=== PATIENT | female | born 1990 | race Caucasian/White ===

== ENCOUNTER 2016-07-11 06:37 | Inpatient (IN) ==
[2016-07-11] MEDS ORDERED: Oxytocin 20 units/ LR 1000 mL 20 UNIT/1,000 ML BAG IVC ONE ×2 (06:42→09:31)
[2016-07-11] MEDS ORDERED: Ketorolac 30 MG/ML VIAL IVP ONE (06:58)
--- NOTE | 2016-07-11 07:28 | OB/GYN History & Physical ---
Date of Encounter: 07/11/16 Time of Encounter: 07:24 Assessment and Plan (1) 29 weeks gestation of Current visit: Yes Status: Acute Receiving care at [facility] per patient report, no records at time of arrival (2) labor with delivery Current visit: Yes Status: Acute Patient delivered fetus at home, arrived with placenta in situ (3) Heroin abuse affecting , antepartum, third trimester Current visit: Yes Status: Acute drug testing History of Present Illness Chief complaint: 29 week home delivery HPI: Ms. Lowry is a 26 year old female presents via squad having delivered at home at 05:52 spontaneous vaginal delivery of a female weighing 3 lbs. 4 oz. with Apgars of 7 at 1 minute and 7 at 5 minutes per squad. Placenta was still in situ at time of delivery. Patient reports is been minimal bleeding. She has significant cramping. She reports that the water was clear. She has no history of deliveries before. She was receiving care at [facility]. She reports heroin use, was last used 3 days ago. She reports a rash over her arms and legs which started about 2 weeks ago. She reports it seems to have improved and is now resolving, she denies any itching with it. She thinks it is because she is sensitive to laundry detergent. Past Med Surg Social Fam HX - Past Medical History Source: patient Medical history: other (IV drug use) Psychiatric history: no psych history - Past Surgical History Surgical History: other - Social History Smoking Status: Former smoker Smokeless Tobacco Status: No Alcohol use: none Drug use: IVDU (Carlene 3 days ago) - Family History Mother Family Member Ethnicity: Non- Living Status: Still Living Hx Family Cardiac Disorders: No Hx Family Respiratory Disorders: No Hx Family Cancer: No Hx Family GI Disorders: No Hx Family Endocrine Disorder: No Hx Family Neuromuscular Disorders: No Hx Family Neurologic Disorders: No Hx Family HEENT Disorders: No Hx Family Autoimmune Disorders: No Obstetrical History - Pregnancies : 3 Term: 2 : 1 Livin Medications and Allergies Docusate [Colace] 100 mg PO BID #60 capsule 04/01/15 [Rx] Ibuprofen [Motrin] 600 mg PO Q6H PRN #60 tablet 04/01/15 [Rx] Labetalol [Trandate] 100 mg PO BID #60 tablet 04/01/15 [Rx] Allergies Penicillins Allergy (Verified 03/30/15 11:28) Swelling of Lip/Tongue/Throat Review of System OB All systems PM: reviewed and no additional remarkable complaints except as stated - Integumentary Integumentary: pruritus, rash - Psychiatric Psychiatric: as per HPI Exam - Vital Signs Vital signs: Afeb, VSS - Constitutional Constitutional: no acute distress, average body habitus - HEENT HEENT: Normocephaly, Mucus Membranes Moist - Neck Neck exam: normal inspection, supple - Lungs Respiratory exam: CTAB - Cardiovascular Cardiovascular exam: RRR - Abdomen Abdomen: Present: bowel sounds normal. Absent: non tender (Tender at fundus), diffuse tenderness - Extremities Extremities exam: normal inspection, warm Deep Tendon Reflex Grade: 2+ Normal - Vulva Vulva: bilateral: normal - Uterus Uterus exam: Present: enlarged (@U) - Anus/Rectum Anus/Rectum: Present: normal perianal skin - Comments Comments: Placenta intact and attached anteriorly with cord hanging through an clamp on cord, 3 vessels identified. No odor. Petechial rash on arms and legs without erythema. Results All other labs normal. - VTE Reasons for not Prescribing Prophylaxis: Treatment not Indicated - Low risk for VTE
[2016-07-11] MEDS ORDERED: Clindamycin 900 MG/50 ML 900 MG/50 ML IV.SOLN IVPB SCH (08:00)
[2016-07-11] MEDS ORDERED: FLU VACC QS2016-17 36MOS UP/PF 0.5 ML SYRINGE IM ONE (08:05)
[2016-07-11] MEDS ORDERED: miSOPROStol 100 MCG TABLET PO STA (08:30)
--- NOTE | 2016-07-11 08:34 | OB/GYN Procedure Note ---
Delivery - Delivery Date: 07/11/16 Provider: Mone Oates Intrapartum events: precipitous labor- <3hr Delivery induction: none Delivery monitor: none Anesthesia: none Estimated Blood Loss: 100 - Infant (s) Infant A Delivery Date: 07/11/16 Infant Delivery Time: 05:52 Presentation: vertex Route of delivery: Gender: Female Viability: Viable Pounds: 3 Ounces: 4 Weight Gram: 1.47 kg at 1 minute: 7 at 5 mins: 7 Shoulder Dystocia: not encountered Placenta: spontaneous Cord: 3 umbilical vessels - Repair Episiotomy: none Laceration Description: Periurethral (bilateral), Superficial - Complications Delivery complications: other (, delivered at home with squad present) Delivery comments: Patient delivered at home and transferred by squad with placenta in situ. Patient reports minimal bleeding and minimal bleeding was seen at the time of presentation. Inspection shows superficial bilateral periurethral lacerations were hemostatic and not repaired. No other lacerations were visualized. Placenta was delivered after by mouth Cytotec and IV Pitocin given and appeared intact upon inspection. Cultures were obtained of both sides of the placenta. Three-vessel cord was identified. Estimated blood loss 50 mL at the time of delivery subtotal approximately 100 mL estimate. - Disposition Mom disposition: stable in LDR [place] disposition: taken to nursery
[2016-07-11] MEDS ORDERED: BUPRENORPHINE HCL SL SCH (09:00)
[2016-07-11] MEDS ORDERED: NALOXONE HCL SL SCH (09:00)
[2016-07-11 09:07] LABS: Amphetamine Screen,Urine Negative ng/mL (Cutoff=1000); Barbiturate Screen,Urine Negative ng/mL (Cutoff=200); Benzodiazepines Screen,Urine Negative ng/mL (Cutoff=200); Cannabinoid Screen,Urine Positive ng/mL (Cutoff = 50); Cocaine Screen,Urine Negative ng/mL (Cutoff= 300); Opiate Screen,Urine Positive ng/mL (Cutoff=300); Phencyclidine Screen,Urine Negative ng/mL (Cutoff=25)
[2016-07-11] MEDS ORDERED: Rho Immune Globulin 1,500 UNIT SYRINGE IM PRN (09:31)
[2016-07-11] MEDS ORDERED: Prenatal Vit/FA 1 EACH TABLET PO SCH (09:31)
[2016-07-11] MEDS ORDERED: Acetaminophen 325 MG TABLET PO PRN (09:31)
[2016-07-11] MEDS ORDERED: Oxytocin 20 units/ LR 1000 mL 20 UNIT/1,000 ML BAG IV SCH (09:31)
[2016-07-11] MEDS ORDERED: Ibuprofen 600 MG TABLET PO PRN (09:31)
[2016-07-11] MEDS ORDERED: Measles/Mumps/Rubella Vacc 0.5 ML VIAL SQ PRN (09:31)
[2016-07-11] MEDS ORDERED: miSOPROStol 100 MCG TABLET PO ONE (10:45)
[2016-07-11 13:59] LABS: HIV-1&2 Antibody & p24 Ag Nonreactive (Nonreactive); Hepatitis B Surface Antigen Nonreactive (Nonreactive)
--- NOTE | 2016-07-11 18:27 | OB/GYN Progress Note ---
Date of Encounter: 07/11/16 Time of Encounter: 16:00 - Assessment and Plan (1) Status post vaginal delivery Status: Acute (2) Heroin abuse affecting , antepartum, third trimester Status: Acute Subjective - Subjective Interval history: Patient signed herself out AMA without being seen. Baby was transferred to [facility]'s did not want to wait an appropriate 6-8 hours to make sure she was not bleeding before we felt comfortable discharging her. Patient was not seen by any provider before signing out AMA Objective - Latest Vital Signs Latest vital signs: Vital Signs Temp Pulse Resp BP Pulse Ox 07/11/16 11:30 98.4 F 67 16 124/82 98 07/11/16 10:30 98.3 F 71 18 142/85 07/11/16 09:30 98.1 F 58 16 132/84 99 Intake and Output 07/11/16 07/11/16 07/11/16 07:59 15:59 23:59 Intake Total 360 / 360 Output Total 600 / 600 1100 / 1100 Balance -600 / -600 -740 / -740 Intake: Oral 360 / 360 Output: Urine 600 / 600 1100 / 1100 Other: Meal Lunch Percent of Meal Consumed 100% Weight 61.235 kg 62.3 kg Patient Weight 07/11/16 23:59 Weight 62.3 kg - Labs Labs: Laboratory Results - last 24 hr 07/11/16 07/11/16 07/11/16 08:19 12:39 12:39 Urine Opiates Screen Positive H Ur Barbiturates Screen Negative Ur Phencyclidine Scrn Negative Ur Amphetamines Screen Negative U Benzodiazepines Scrn Negative Urine Cocaine Screen Negative U Marijuana (THC) Screen Positive H Hep Bs Antigen Nonreactive HIV Ag/Ab Combo Qual Nonreactive Nonreactive Rubella IgG Antibody 07/11/16 12:39 Urine Opiates Screen Ur Barbiturates Screen Ur Phencyclidine Scrn Ur Amphetamines Screen U Benzodiazepines Scrn Urine Cocaine Screen U Marijuana (THC) Screen Hep Bs Antigen HIV Ag/Ab Combo Qual Rubella IgG Antibody POSITIVE
[2016-07-12 08:04] VITALS: BP 124/82
[2016-07-13 03:59] LABS: Amphetamines NEGATIVE ng/mL (Cutoff 30); Barbiturates NEGATIVE ng/mL (Cutoff 75); Benzodiazepines NEGATIVE ng/mL (Cutoff 75); Methadone NEGATIVE ng/mL (Cutoff 40); Methamphetamines NEGATIVE ng/mL (Cutoff 30); Phencyclidine NEGATIVE ng/mL (Cutoff 15)
[2016-07-13 07:58] LABS: Cocaine POSITIVE ng/mL (Cutoff 30); Opiates POSITIVE ng/mL (Cutoff 30)
[2016-07-14 18:49] LABS: Hydrocodone Confirmation <2 ng/mL
[2016-07-15 08:06] LABS: 6_Acetylmorphine Confirmation <2 ng/mL; Oxymorphone Confirmation <2 ng/mL
[2016-07-15 08:07] LABS: Cocaine Confirmation <20 ng/mL
== END 2016-07-11 14:47 | disposition left against medical advice (07) | DRG 544 ==
LOC: 1NENULAB 06:37 → 1NENUOBS 09:29
PROVIDERS: ADMIT Obstetrics & Gynecology; ATTEND Obstetrics & Gynecology